=== PATIENT | female | born 1945 | race African-American/Black ===

== ENCOUNTER 2017-04-03 01:10 | Emergency (ER) | payer MEDICARE ==
[2017-04-03 02:18] LABS: #Eosinphils 0.1 thou/uL (0.0-0.7); #Lymphocytes 1.5 thou/uL (1.20-3.40); #Monocytes 0.6 thou/uL (0.11-0.59); #Neutrophils 4.5 thou/uL (1.40-6.50); %Basophils 0.7 % (0.0-1.0); %Eosinophils 1.1 % (0.0-10.0); %Lymphocytes 22.1 % (21.0-51.0); %Monocytes 9.3 % (0.0-10.0); Hematocrit 41.8 % (36.0-47.0); Mean Platelet Volume 9.5 fL (7.4-10.4); Red Blood Cell (RBC) Count 4.78 mill/uL (4.20-5.40); White Blood Cell (WBC) Count 6.8 thou/uL (4.8-10.8)
[2017-04-03 02:37] LABS: ALT (SGPT) 21 U/L (8-55); AST (SGOT) 25 U/L (5-34); Alkaline Phosphatase 76 U/L (40-150); Anion Gap 12 mmol/L (10-20); BUN (Urea Nitrogen) 14 mg/dL (9.8-20.1); Bilirubin, Total 0.4 mg/dL (0.2-1.2); Calc. Creatinine Clearance 0 mL/min (70-130); Calcium 9.7 mg/dL (7.8-10.44); Carbon Dioxide 30 mmol/L (23-31); Chloride 99 mmol/L (98-107); Estimated GFR-MDRD 88; Globulin 3.9 g/dL (2.4-3.5)
[2017-04-03 02:43] LABS: Bilirubin Negative (Negative); Blood, Urine Negative (Negative); Glucose, Urine (Dipstick) Negative (Negative); Ketone, Urine Negative (Negative); Nitrite Negative (Negative); Protein, Urine (Dipstick) Negative (Neg-Trace); Urobilinogen 0.2 mg/dL (0.2-1.0)
[2017-04-03] MEDS ORDERED: Meclizine HCl 25 MG TAB ONE (03:09)
[2017-04-03] MEDS ORDERED: Metoclopramide HCl 10 MG/2 ML VIAL ONE (03:09)
--- NOTE | 2017-04-03 11:11 | CT ---
PRELIMINARY REPORT/[facility]/EMERGENCY AFTER HOURS PROCEDURE: EXAM: CT Head Without Intravenous Contrast EXAM DATE/TIME: Exam ordered 04/03/2017 2:52 AM CLINICAL HISTORY: 71 years old, female; Signs and symptoms; Dizziness; Patient HX: Dizzy TECHNIQUE: Axial computed tomography images of the head/brain without intravenous contrast. COMPARISON: No relevant prior studies available. FINDINGS: Brain: Mild chronic small vessel ischemic change. Mild volume loss. No hemorrhage. Ventricles: Unremarkable. No ventriculomegaly. Bones/joints: Unremarkable. No acute fracture. Soft tissues: Unremarkable. Sinuses: Unremarkable as visualized. No acute sinusitis. Mastoid air cells: Unremarkable as visualized. No mastoid effusion. IMPRESSION: No acute brain findings. Thank you for allowing us to participate in the care of your patient. Dictated and Authenticated by: Cameron Pastor MD 04/03/2017 3:17 AM Central Time ([place] \T\ [place])\H\ \N\ FINAL REPORT CT HEAD NONCONTRAST: DATE: 04/03/17. TIME: Performed on an emergency basis at 1453 hours. HISTORY: Altered mental status. Dizziness. FINDINGS: No comparison. Findings agree with the preliminary report by Dr. Pastor from [facility]. N o acute intracranial abnormalities are demonstrated on noncontrast CT head. POS: [facility]
--- NOTE | 2017-04-03 12:26 | EKG ---
Test Reason : Blood Pressure : / mmHG Vent. Rate : 064 BPM Atrial Rate : 064 BPM P-R Int : 152 ms QRS Dur : 088 ms QT Int : 412 ms P-R-T Axes : 055 031 029 degrees QTc Int : 425 ms Normal sinus rhythm with sinus arrhythmia Normal ECG No ST elevation/OK Confirmed by ANGE TURK ([id number]), rewrite editor SHERIN WOODWARD ([id number] on 04/03/2017 12:25:45 PM Referred By: Confirmed By:ANGE TURK
== END 2017-04-03 05:54 | disposition home or self-care (01) ==
LOC: ERS 01:10
DX: R42 Dizziness and giddiness (principal); E05.90 Thyrotoxicosis, unspecified without thyrotoxic crisis or storm; I10 Essential (primary) hypertension; Z87.891 Personal history of nicotine dependence; Z79.899 Other long term (current) drug therapy
CPT/HCPCS: 70450; 80053; 81003; 82550; 85025; 87086; 93005; 96374; 96375; J0360; J2765

== ENCOUNTER 2018-01-24 09:42 | Outpatient (CLI) | payer MEDICARE ==
--- NOTE | 2018-01-24 12:24 | RAD ---
CHEST TWO VIEWS: History: Dyspnea. FINDINGS: Cardiac silhouette and pulmonary vasculature are unremarkable. Mediastinum is midline with aortic heather cification and post-operative changes of the thoracic spine. No confluent airspace consolidation, pne umothorax or pleural fluid. 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 IMPRESSION: Chronic type findings. Atherosclerosis. No active cardiopulmonary abnormalities are demonstrated. POS: [facility]
== END 2018-01-24 09:43 | disposition home or self-care (01) ==
LOC: RAD 09:42
PROVIDERS: ATTEND Internal Medicine Cardiovascular Disease
DX: R09.89 Other specified symptoms and signs involving the circulatory and respiratory systems (principal); I70.0 Atherosclerosis of aorta
CPT/HCPCS: 71046

== ENCOUNTER 2018-04-21 08:24 | Outpatient (CLI) | payer MEDICARE ==
--- NOTE | 2018-04-21 11:14 | BD ---
DEXA BONE DENSITY STUDY: History: Post-menopausal BMD (g/cm2) Left forearm: Ulnar distal 0.464 T-Score: +0.4 Mid 0.623 T-Score: +0.3 One-third 0.763 T-Score: +1.1 Total: 0.594 T-Score: +0.3 Right forearm: Ulnar distal 0.459 T-Score: +0.3 Mid 0.626 T-Score: +0.3 One-third 0.715 T-Score: +0.3 Total: 0.602 T-Score: +0.4 Impression: Normal bone mineral density of the right and left forearm. POS: [facility]
== END 2018-04-21 08:25 | disposition home or self-care (01) ==
LOC: BICMAMMO 08:24
PROVIDERS: ATTEND Internal Medicine
DX: Z12.31 Encounter for screening mammogram for malignant neoplasm of breast (principal); Z13.820 Encounter for screening for osteoporosis
CPT/HCPCS: 77063; 77067; 77080

== ENCOUNTER 2019-01-14 19:20 | Emergency (ER) | payer MEDICARE | END 2019-01-14 20:36 | disposition home or self-care (01) | LOC: ERS 19:20 | DX: I10 Essential (primary) hypertension (principal); E05.90 Thyrotoxicosis, unspecified without thyrotoxic crisis or storm; E78.5 Hyperlipidemia, unspecified; Z87.891 Personal history of nicotine dependence; Z79.82 Long term (current) use of aspirin; Z79.899 Other long term (current) drug therapy | CPT/HCPCS: 93005 ==

== ENCOUNTER 2020-09-11 11:45 | Outpatient (CLI) | payer MEDICARE | END 2020-09-11 11:46 | disposition home or self-care (01) | LOC: BICMAMMO 11:45 | PROVIDERS: ATTEND Internal Medicine | DX: Z12.31 Encounter for screening mammogram for malignant neoplasm of breast (principal); Z13.820 Encounter for screening for osteoporosis | CPT/HCPCS: 77063; 77067; 77080 ==

== ENCOUNTER 2024-01-13 08:07 | Emergency (ER) | payer MEDICARE | END 2024-01-13 09:29 | disposition home or self-care (01) | LOC: ERS 08:07 | DX: R59.1 Generalized enlarged lymph nodes (principal); E03.9 Hypothyroidism, unspecified; E78.5 Hyperlipidemia, unspecified; I10 Essential (primary) hypertension; Z87.891 Personal history of nicotine dependence; Z79.82 Long term (current) use of aspirin; Z79.899 Other long term (current) drug therapy | CPT/HCPCS: 96372; 99283; J1885; J7512 ==

== ENCOUNTER 2024-01-16 12:49 | Emergency (ER) | payer MEDICARE ==
[~2024-01-16 12:49] MED LIST: Iopamidol-370 76% 500 ML MDV (1 ML CHARGE) ONE
[2024-01-16 14:57] LABS: #Basophils 0.03 10x3/uL (0.0-0.2); #Eosinphils Less than 0.03 10x3/uL (0.0-0.7); %Basophils 0.2 % (0.0-1.0); %Lymphocytes 8.8 % (21.0-51.0); %Monocytes 10.6 % (0.0-10.0); %Neutrophils 79.7 % (42.0-75.0); Hemoglobin 13.2 g/dL (12.0-16.0); Mean Corpuscular Hemoglobin 27.8 pg (27.0-31.0); Mean Corpuscular Volume 84.2 fL (78.0-98.0); Mean Platelet Volume 11.9 fL (7.4-10.4); Platelet Count 197 10x3/uL (130-400); RBC Distribution Width 14.3 % (11.5-14.5); Red Blood Cell (RBC) Count 4.75 mill/uL (4.20-5.40)
[2024-01-16 15:15] LABS: ALT (SGPT) 38 U/L (8-55); AST (SGOT) 33 U/L (5-34); Albumin 3.5 g/dL (3.4-4.8); Alkaline Phosphatase 64 U/L (40-110); Anion Gap 15 mmol/L (10-20); BUN (Urea Nitrogen) 16 mg/dL (9.8-20.1); Bilirubin, Total 0.7 mg/dL (0.2-1.2); Calc. Creatinine Clearance 0 mL/min (70-130); Calcium 9.5 mg/dL (7.8-10.44); Carbon Dioxide 25 mmol/L (23-31); Chloride 102 mmol/L (98-107); Estimated GFR 87; Globulin 4.2 g/dL (2.4-3.5); Glucose 99 mg/dL (83-110); Potassium 3.2 mmol/L (3.5-5.1); Protein, Total 7.7 g/dL (5.8-8.1); Sodium 139 mmol/L (136-145)
[2024-01-16] MEDS ORDERED: Ketorolac Tromethamine 30 MG (1 mL) VIAL ONE (16:02)
[2024-01-16] MEDS ORDERED: methylPREDNISolone Sod Succ/PF 125 MG/2 ML VIAL ONE (16:02)
[2024-01-16] MEDS ORDERED: Ampicillin/Sulbactam 3 GM VIAL ONE (16:02)
[2024-01-16] MEDS ORDERED: Potassium Bicarbonate/Cit Ac 20 MEQ TAB ONE (21:38)
== END 2024-01-16 21:53 | disposition short-term general hospital (02) ==
LOC: ERS 12:49
DX: L02.11 Cutaneous abscess of neck (principal); K04.7 Periapical abscess without sinus; I10 Essential (primary) hypertension; Z87.891 Personal history of nicotine dependence
CPT/HCPCS: 70491; 80053; 83605; 85025; 86140; 87040; J0295; J1885; J2930; 36415; 96374; 96375; Q9967